=== PATIENT | male | born 1995 | race African-American/Black ===

== ENCOUNTER 2017-09-19 05:53 | Emergency (ER) | payer MEDICAID ==
[~2017-09-19] VITALS: Ht 172.7 cm; Wt 59.0 kg
[2017-09-19 06:51] LABS: Urine Bilirubin Negative (Negative); Urine Blood 3+ /uL (Negative); Urine Color Yellow (Yellow); Urine Glucose Normal (Normal); Urine Ketone Negative (Negative); Urine Nitrite Negative (Negative); Urine RBC 60 /hpf (0 - 3); Urine Urobilinogen Normal (Negative)
[2017-09-19 07:31] VITALS: BP 138/87
== END 2017-09-19 08:26 | disposition home or self-care (01) ==
LOC: ER 05:55
DX: R31.9 Hematuria, unspecified (principal); R50.9 Fever, unspecified; R11.2 Nausea with vomiting, unspecified
CPT/HCPCS: 81001; 99283; J7030